=== PATIENT | female | born 1945 | race Caucasian/White ===

== ENCOUNTER 2016-12-30 14:07 | Inpatient (IN) | payer MEDICARE, OTHER ==
[2016-12-30 12:45] LABS: BASO % 0.2 % (0-2); HGB-HEMOGLOBIN 13.7 gm/dl (12.0-15.5); IMMATURE GRANULOCYTES PERCENT 0.8 % (0-0.3); LYMPH ABSOLUTE COUNT 1.1 tho/cmm (0.8-4.5); MCH (MEAN CORPUSCULAR HGB) 31.5 pg (28.0-32.0); MCHC MEAN CORPUSCULAR HGB CONC 33.4 % (32.0-36.0); MCV (MEAN CELL VOLUME) 94.3 fl (82.0-96.0); MEAN PLATELET VOLUME 11.4 cmc (9.4-12.4); MONO % 5.8 % (0-12); MONOCYTE ABSOLUTE COUNT 0.7 tho/cmm (0.0-1.2); NEUTROPHIL ABSOLUTE COUNT 10.5 tho/cmm (1.6-8.0); NEUTROPHIL-AUTOMATED 10.5 tho/cmm (1.6-8.0); NEUTROPHILS % 84.2 % (40-80); PLATELET COUNT 188 tho/cmm (150-450); RED BLOOD COUNT 4.35 mil/cmm (4.00-5.20); RED CELL DISTRIBUTION WIDTH 15.1 % (12.4-16.4); WHITE BLOOD COUNT 12.5 tho/cmm (4.0-10.0)
[2016-12-30 12:59] LABS: URINE BILIRUBIN SMALL (NEG); URINE BLOOD NEGATIVE (NEG); URINE GLUCOSE (UA) NEGATIVE (NEG); URINE KETONE SMALL (NEG); URINE LEUKOCYTE ESTERASE POSITIVE (NEG); URINE NITRITE POSITIVE (NEG); URINE PROTEIN MODERATE (NEG); URINE SPECIFIC GRAVITY 1.025 (1.003-1.030)
[2016-12-30 13:00] LABS: URINE APPEARANCE CLEAR; URINE COLOR ORANGE
[2016-12-30 13:11] LABS: URINE EPITHELIAL CELLS 0 /[HPF] (0-10); URINE RBC 0 /[HPF] (0-5); URINE WBC 0-1 /[HPF] (0-5)
[2016-12-30 13:21] LABS: PROTHROMBIN TIME 11.2 SECONDS (9.0-13.6)
[2016-12-30 13:29] LABS: ALBUMIN 3.2 g/dl (3.5-5.0); ALKALINE PHOSPHATASE 101 U/L (33-138); ALT/SGPT 16 U/L (12-78); ANION GAP 13 mmol/L (0-20); AST/SGOT 23 U/L (10-40); BILIRUBIN,TOTAL 0.5 mg/dl (0-1.5); BLOOD UREA NITROGEN 22 mg/dl (6-24); CALCIUM 8.6 mg/dl (8.5-10.5); CARBON DIOXIDE-VENOUS 26 mmol/L (22-32); CHLORIDE 104 mmol/l (96-110); CREATININE 1.02 mg/dl (0.50-1.10); GLUCOSE 123 mg/dL (70-110); POTASSIUM 4.5 mmol/L (3.7-5.1); SODIUM 138 mmol/L (135-145); eGFR VALUE FOR BLACK 65 mL/Min
[~2016-12-30 14:07] MED LIST: ADVAIR HFA 115/12 GM; ALBUTEROL SULF8.5 G1 IH; ARICEPT10 M2 PO; ARIMIDEX1 M1 PO; ASPIR 8181 M1 PO; ASPIRIN EC LOW81 MG; ASPIRIN EC325 MG PO; CALCIUM600 M1 PO; CATAPRES0.1 M1 PO; CELEXA10 MG; CEREFOLIN TABLE1 TAB; CHANTIX1 MG PO; CITALOPRAM HBR40 M1 PO; CITALOPRAM HBR40 MG PO; CLARITIN10 M6 PO; CLARITIN10 MG; CLONIDINE HCL0.1 MG PO; COMPAZINE10 M PO; CRESTOR10 MG PO; DARVOCET-N 1001 EA PO; DARVOCET-N 1001 TAB; EFFIENT10 MG PO; ESTRACE2 M1 PO; ESTRACE2 MG; FLONASE ALLERG9.9 ML; FLONASE ALLERG9.9 ML NS; FLONASE16 GM; FLOVENT RO50 MCG/DIS IH; FOSAMAX70 MG; FOSAMAX70 MG PO; GABAPENTIN300 MG PO; HYDROCODON-ACE1 EA16 PO; IMDUR30 MG; IMDUR60 MG; ISOSORBIDE MONO60 M2 PO; ISOSORBIDE MONO60 M3 PO; LEVBID0.375 MG PO; LINZESS PO; LINZESS145 MC1 PO; LIVALO4 M1 PO; LOPRESSOR50 M1 PO; LOPRESSOR50 MG; LUNESTA3 M1 PO; LUNESTA3 MG; LYRICA75 MG/CAP PO; MIRALAX17 G1 PO; MIRALAX17 GM PO; NEURONTIN300 M1 PO; NEXIUM40 MG; NITROGLYCERIN0.4 MG; NITROSTAT0.4 MG/TAB SL; NORCO 5-325 TA1 EACH PO; NORCO 7.5-3251 EACH PO; NORCO 7.5/325 T1 TAB PO; NORVASC2.5 M1 PO; NORVASC5 MG; PANTOPRAZOLE SO40 MG PO; PERIDEX118 ML MM; PLAVIX75 MG; PLAVIX75 MG PO; PREVIDENT 5000100 ML DT; PRINIVIL2.5 MG PO; PROTONIX40 MG; RANEXA1000 M1 PO; RANEXA500 M1 PO; RANEXA500 MG; RANEXA500 MG PO; SULINDAC150 M1 PO; SULINDAC150 MG; SULINDAC150 MG PO; SYMAX PO; SYMAX-SR0.375 MG PO; SYNTHROID50 MCG; SYNTHROID75 MC1 PO; SYNTHROID75 MCG PO; SYNTHROID88 MCG PO; ULTRAM50 MG PO; VITAMIN D250000 UNI1 PO; WELLBUTRIN XL150 M1 PO; ZOCOR40 MG; ZOVIRAX TP; [UNRECOGNIZED DRUG - OTHER]
[2016-12-31 14:31] LABS: ANION GAP 11 mmol/L (0-20); BLOOD UREA NITROGEN 13 mg/dl (6-24); CALCIUM 8.4 mg/dl (8.5-10.5); CARBON DIOXIDE-VENOUS 25 mmol/L (22-32); CHLORIDE 111 mmol/l (96-110); CREATININE 0.88 mg/dl (0.50-1.10); GLUCOSE 103 mg/dL (70-110); POTASSIUM 3.9 mmol/L (3.7-5.1); SODIUM 143 mmol/L (135-145); eGFR VALUE FOR BLACK 78 mL/Min
[2016-12-31 14:34] LABS: TSH-THYROID STIMULATING HORM. 0.42 uIU/ml (0.40-3.80)
[2017-01-01] MEDS ORDERED: ASPIRIN81 M1 PO (16:48)
== END 2017-01-01 19:11 | DRG 948 ==
LOC: EDMED 14:07 → EMR2 15:58 → 5EB 18:47
PROVIDERS: Emergency Medicine; Physician Assistant; Psychiatry & Neurology Neurology; ADMIT Family Medicine
PROC: B246ZZZ Ultrasonography of Right and Left Heart (ICD-10-PCS; principal; 2016-12-31)
PROC: B348ZZZ Ultrasonography of Bilateral Internal Carotid Arteries (ICD-10-PCS; 2016-12-31)
DX: R41.82 Altered mental status, unspecified (principal); G35 Multiple sclerosis; F03.90 Unspecified dementia, unspecified severity, without behavioral disturbance, psychotic disturbance, mood disturbance, and anxiety; I65.22 Occlusion and stenosis of left carotid artery; E03.9 Hypothyroidism, unspecified; E78.5 Hyperlipidemia, unspecified; F11.90 Opioid use, unspecified, uncomplicated; F32.9 Major depressive disorder, single episode, unspecified; F41.9 Anxiety disorder, unspecified; G89.29 Other chronic pain; I10 Essential (primary) hypertension; I25.10 Atherosclerotic heart disease of native coronary artery without angina pectoris; M19.90 Unspecified osteoarthritis, unspecified site; R20.2 Paresthesia of skin; I77.6 Arteritis, unspecified
CPT/HCPCS: A9577; G0378; G8978-GP-CH; G8979-GP-CH; G8980-GP-CH; G8987-GO-CH; G8988-GO-CH; G8989-GO-CH; J0360; J1650; J7030; J7040; P9612; Q9967

== ENCOUNTER 2017-03-30 10:58 | Inpatient (IN) | payer MEDICARE, OTHER ==
[~2017-03-30 10:58] MED LIST changes: +ASPIRIN81 M1 PO
[2017-03-30 11:23] LABS: PROTHROMBIN TIME 11.2 SECONDS (9.0-13.6)
[2017-03-30 11:37] LABS: ALB/GLOB RATIO 1.1 (0.8-2.0); ALBUMIN 2.8 g/dl (3.5-5.0); ALKALINE PHOSPHATASE 91 U/L (33-138); ALT/SGPT 11 U/L (12-78); ANION GAP 16 mmol/L (0-20); AST/SGOT 20 U/L (10-40); BILIRUBIN,TOTAL 0.6 mg/dl (0-1.5); BLOOD UREA NITROGEN 25 mg/dl (6-24); CALCIUM 8.2 mg/dl (8.5-10.5); CARBON DIOXIDE-VENOUS 26 mmol/L (22-32); CHLORIDE 106 mmol/l (96-110); CREATININE 1.11 mg/dl (0.50-1.10); GLUCOSE 91 mg/dL (70-110); POTASSIUM 4.6 mmol/L (3.7-5.1); SODIUM 143 mmol/L (135-145); eGFR VALUE FOR BLACK 59 mL/Min
[2017-03-30 11:44] LABS: BASO % 0.3 % (0-2); HCT-HEMATOCRIT 34.9 % (34.0-49.0); HGB-HEMOGLOBIN 11.5 gm/dl (12.0-15.5); IMMATURE GRANULOCYTES ABSOLUTE 0.01 tho/cmm (0-0.03); IMMATURE GRANULOCYTES PERCENT 0.2 % (0-0.3); LYMPH % 17.1 % (20-45); MCH (MEAN CORPUSCULAR HGB) 29.5 pg (28.0-32.0); MCV (MEAN CELL VOLUME) 89.5 fl (82.0-96.0); MONO % 6.8 % (0-12); MONOCYTE ABSOLUTE COUNT 0.4 tho/cmm (0.0-1.2); NEUTROPHIL ABSOLUTE COUNT 4.6 tho/cmm (1.6-8.0); NEUTROPHIL-AUTOMATED 4.6 tho/cmm (1.6-8.0); NEUTROPHILS % 75.6 % (40-80); PLATELET COUNT 190 tho/cmm (150-450); RED CELL DISTRIBUTION WIDTH 14.7 % (12.4-16.4)
[2017-03-30 12:47] LABS: ABG CO2 ARTERIAL 26 mmol/L (21-27); ARTERIAL BLD GAS O2 SATURATION 83 % (95-98); ARTERIAL BLOOD GAS PCO2 46 mmHg (32-45); ARTERIAL PO2 52 mmHg (70-100); BICARBONATE 25 mmol/L (21-28); BLOOD GAS BASE EXCESS 0 mM/L (-/+3); PH 7.35 Units (7.35-7.45)
[2017-03-30] MEDS ORDERED: PERIDEX118 ML SSP (13:44)
[2017-03-30] MEDS ORDERED: VENTOLIN HFA18 G2 PO (14:56)
[2017-03-31 06:58] LABS: BASO % 0.2 % (0-2); HCT-HEMATOCRIT 38.4 % (34.0-49.0); HGB-HEMOGLOBIN 12.8 gm/dl (12.0-15.5); IMMATURE GRANULOCYTES ABSOLUTE 0.01 tho/cmm (0-0.03); IMMATURE GRANULOCYTES PERCENT 0.1 % (0-0.3); LYMPH % 12.2 % (20-45); LYMPH ABSOLUTE COUNT 1.1 tho/cmm (0.8-4.5); MCH (MEAN CORPUSCULAR HGB) 29.4 pg (28.0-32.0); MCHC MEAN CORPUSCULAR HGB CONC 33.3 % (32.0-36.0); MCV (MEAN CELL VOLUME) 88.3 fl (82.0-96.0); MEAN PLATELET VOLUME 10.6 cmc (9.4-12.4); MONO % 5.9 % (0-12); MONOCYTE ABSOLUTE COUNT 0.5 tho/cmm (0.0-1.2); NEUTROPHILS % 81.6 % (40-80); PLATELET COUNT 197 tho/cmm (150-450); RED BLOOD COUNT 4.35 mil/cmm (4.00-5.20); RED CELL DISTRIBUTION WIDTH 14.7 % (12.4-16.4); WHITE BLOOD COUNT 8.6 tho/cmm (4.0-10.0)
[2017-03-31 07:07] LABS: IRON 89 ug/dl (37-170); IRON BINDING CAPACITY 266 ug/dl (250-450)
[2017-03-31 07:15] LABS: ANION GAP 13 mmol/L (0-20); BLOOD UREA NITROGEN 14 mg/dl (6-24); CALCIUM 8.9 mg/dl (8.5-10.5); CARBON DIOXIDE-VENOUS 26 mmol/L (22-32); CHLORIDE 109 mmol/l (96-110); CHOLESTEROL 139 mg/dl (120-200); CREATININE 0.82 mg/dl (0.50-1.10); FERRITIN 113 ng/ml (8-250); GLUCOSE 96 mg/dL (70-110); HDL CHOLESTEROL 65 mg/dl (40-60); LDL CHOLESTEROL 59 mg/dl (0-99); SODIUM 144 mmol/L (135-145); TRIGLYCERIDES 75 mg/dl (<149); VLDL 15 mg/dl (0-30); eGFR VALUE FOR BLACK 85 mL/Min
[2017-03-31 07:20] LABS: TSH-THYROID STIMULATING HORM. 0.13 uIU/ml (0.40-3.80)
[2017-03-31 07:25] LABS: POTASSIUM 3.7 mmol/L (3.7-5.1)
[2017-04-02] MEDS ORDERED: VENTOLIN HFA18 G2 INH (14:28)
[2017-04-02] MEDS ORDERED: CLARITIN10 M6 PO (14:28)
[2017-04-02] MEDS ORDERED: ASPIRIN325 M3 PO (14:31)
[2017-04-02] MEDS ORDERED: NORCO 5-325 TA1 EACH PO (14:31)
[2017-04-02] MEDS ORDERED: COMPAZINE5 M2 PO (14:32)
[2017-04-02] MEDS ORDERED: CELEXA20 M2 PO (14:32)
[2017-04-02] MEDS ORDERED: PLAVIX75 M1 PO (14:33)
[2017-04-02] MEDS ORDERED: FLONASE ALLERG9.9 ML (14:34)
== END 2017-04-02 16:15 | DRG 69 ==
LOC: EDMED 10:58 → EMR2 13:23 → CCU 15:20
PROVIDERS: Emergency Medicine; Internal Medicine; ADMIT Hospitalist
DX: G45.9 Transient cerebral ischemic attack, unspecified (principal); I27.2 Other secondary pulmonary hypertension; F03.90 Unspecified dementia, unspecified severity, without behavioral disturbance, psychotic disturbance, mood disturbance, and anxiety; I25.10 Atherosclerotic heart disease of native coronary artery without angina pectoris; Z95.5 Presence of coronary angioplasty implant and graft; I10 Essential (primary) hypertension; E03.9 Hypothyroidism, unspecified; R10.13 Epigastric pain; Z79.82 Long term (current) use of aspirin; E78.5 Hyperlipidemia, unspecified; M19.90 Unspecified osteoarthritis, unspecified site; G89.29 Other chronic pain; Z85.3 Personal history of malignant neoplasm of breast; Z96.651 Presence of right artificial knee joint; Z87.891 Personal history of nicotine dependence; D64.9 Anemia, unspecified; R25.1 Tremor, unspecified; Z53.8 Procedure and treatment not carried out for other reasons
CPT/HCPCS: A9577; C8929; G8988-GO-CH; G8989-GO-CH; G8996-GN-CH; G8997-GN-CH; G8998-GN-CH; G9168-GN-CJ; G9169-GN-CI; J0360; J1885; J2250; J2270; J2405; J2550; J2997; J3010; J7030; Q9967